=== PATIENT | female | born 1950 | race African-American/Black ===

== ENCOUNTER 2018-02-24 12:32 | Emergency (ER) | payer BC ==
[~2018-02-24] VITALS: Ht 167.6 cm; Wt 115.0 kg
[2018-02-24] MEDS ORDERED: SODIUM CHLORIDE 0.9% 1,000 ML IV ONE (12:47)
[2018-02-24] MEDS ORDERED: KETOROLAC 30MG/ML VIAL IV STA (12:47)
[2018-02-24 14:49] LABS: EOSINOPHILS % 3.4 % (0.0-5.0); HEMATOCRIT. 37.7 % (36.0-48.0); HEMOGLOBIN. 12.7 g/dL (12.0-16.0); LYMPHOCYTES % 20.8 % (20.0-50.0); MEAN CORPUSCULAR HEMOGLOBIN 28.7 pg (28.0-32.0); MEAN CORPUSCULAR VOLUME 85.2 fL (81.0-99.0); MEAN PLATELET VOLUME 8.5 fl (7.4-10.4); MONOCYTES % 9.2 % (2.0-8.0); NEUTROPHILS % 65.6 % (40.0-76.0); PLATELET 202 x1000/uL (130-400); RED BLOOD CELL COUNT 4.42 mill/uL (4.2-5.4); RED CELL DISTRIBUTION WIDTH 15.6 % (11.6-14.6)
[2018-02-24 14:55] LABS: CHLORIDE 110 mEq/L (98-107)
[2018-02-24] MEDS ORDERED: CLONIDINE 0.1MG TABLET PO ONE (17:30)
[2018-02-24 19:00] VITALS: BP 185/91
== END 2018-02-24 19:01 | disposition home or self-care (01) ==
LOC: ER 12:32
DX: R51 Headache (principal); R42 Dizziness and giddiness; I10 Essential (primary) hypertension; E78.00 Pure hypercholesterolemia, unspecified; Z88.0 Allergy status to penicillin
CPT/HCPCS: 36415; 70450; 80053; 85025; 93005; 96361; 96374; 99285; J1885; J7030

== ENCOUNTER 2018-11-02 15:39 | Emergency (ER) | payer BC ==
[~2018-11-02] VITALS: Ht 162.6 cm; Wt 113.0 kg
[2018-11-02] MEDS ORDERED: LISI2.5T47 PO (16:03)
[2018-11-02] MEDS ORDERED: ATEN-42 PO (16:03)
[2018-11-02 19:38] VITALS: BP 194/83
[2018-11-02] MEDS ORDERED: TETRACAINE 0.5% OPHTH DROPS 4ML RIGHTEYE ONE (20:15)
[2018-11-02] MEDS ORDERED: FLUORESCEIN SODIUM 1MG/STRIP RIGHTEYE ONE (20:15)
== END 2018-11-02 20:40 | disposition home or self-care (01) ==
LOC: ER 15:39
DX: H57.11 Ocular pain, right eye (principal); I10 Essential (primary) hypertension; E78.00 Pure hypercholesterolemia, unspecified; Z85.3 Personal history of malignant neoplasm of breast; Z88.8 Allergy status to other drugs, medicaments and biological substances; Z88.0 Allergy status to penicillin; Z90.10 Acquired absence of unspecified breast and nipple
CPT/HCPCS: 99283